=== PATIENT | male | born 1980 | race Caucasian/White ===

== ENCOUNTER 2024-09-20 15:09 | Emergency (ER) | payer MEDICAID ==
[~2024-09-20] VITALS: Ht 188 cm; Wt 125.0 kg
[~2024-09-20 15:09] MED LIST: IBUP-1051 PO; IBUP-1984 PO; [UNRECOGNIZED DRUG - REMARK]
[2024-09-20 15:38] VITALS: BP 159/100; PULSE 94; RESP 18; O2SAT 99
[2024-09-20 16:58] LABS: ALANINE AMINOTRANSFERASE 35 U/L (12-78); ALBUMIN 3.5 G/DL (3.4-5.0); ALBUMIN/GLOBULIN RATIO 0.9 (1.1-1.5); ALKALINE PHOSPHATASE 61 IU/L (46-116); ANION GAP 10 (8-16); ASPARTATE AMINO TRANSFERASE 42 U/L (10-37); BILIRUBIN,TOTAL 0.8 MG/DL (0.1-1.0); BLOOD UREA NITROGEN 15 MG/DL (7-18); BUN/CREATININE RATIO 13.4 (10.0-20.0); CALCIUM 8.2 MG/DL (8.5-10.1); CHLORIDE 102 MMOL/L (99-107); CREATININE 1.12 MG/DL (0.60-1.10); GLUCOSE 96 MG/DL (70-104); POTASSIUM 3.2 MMOL/L (3.5-5.1); SODIUM 140 MMOL/L (135-145); TOTAL CARBON DIOXIDE 27.6 MMOL/L (24-32); TOTAL PROTEIN 7.2 G/DL (6.4-8.2); eCRCL 100 ML/MIN; eGFR 72 ML/MIN
[2024-09-20 17:02] LABS: BASOPHILS % (AUTO) 0.2 % (0-1); EOSINOPHILS % (AUTO) 0.2 % (0-6); HEMATOCRIT 45.4 % (42.0-52.0); HEMOGLOBIN 15.3 g/dl (14.0-17.9); LYMPHOCYTES # (AUTO) 1.7 X10'3 (1.1-4.8); LYMPHOCYTES % (AUTO) 32.7 % (21-51); MEAN CORPUSCULAR HEMOGLOBIN 28.9 PG (27.0-31.0); MEAN CORPUSCULAR HGB CONC 33.6 g/dL (33.0-36.5); MEAN CORPUSCULAR VOLUME 86.1 FL (78-98); MONOCYTES # (AUTO) 0.6 X10'3 (0-0.9); MONOCYTES % (AUTO) 12.4 % (2-12); NEUTROPHILS # (AUTO) 2.7 X10'3 (1.8-7.7); NEUTROPHILS % (AUTO) 54.5 % (42-75); PLATELET COUNT 184 X10'3 (140-440); RED BLOOD COUNT 5.28 X10'6 (4.70-6.10); WHITE BLOOD COUNT 5.1 X10'3 (4.5-11.0)
[2024-09-20] MEDS ORDERED: AMOX-580 PO (17:29)
[2024-09-20] MEDS ORDERED: DOXY-462 PO (17:29)
[2024-09-20] MEDS ORDERED: BENZ-38 PO (17:29)
[2024-09-20] MEDS: amox tr/potassium clavulanate 875/125mg TAB PO ONE (17:42)
[2024-09-20] MEDS: benzonatate 100mg capsule PO ONE (17:42)
[2024-09-20] MEDS: DOXYCYCLINE 100MG CAPSULE PO STA (17:43)
[2024-09-20] MEDS ORDERED: POTASSIUM BICARB 20meq eff tab 20 MEQ TABLET.EFF PO SCH (17:45)
[2024-09-20] MEDS: POTASSIUM BICARB 20meq eff tab 20 MEQ TABLET.EFF PO ONE (18:15)
[2024-09-20 18:24] VITALS: TEMP 98.9
== END 2024-09-20 18:25 | disposition home or self-care (01) ==
LOC: ER 15:10
DX: J18.9 Pneumonia, unspecified organism (principal); E87.6 Hypokalemia; I10 Essential (primary) hypertension; J45.909 Unspecified asthma, uncomplicated; Z88.0 Allergy status to penicillin; Z91.013 Allergy to seafood; Z91.041 Radiographic dye allergy status
CPT/HCPCS: 36415; 71045; 80053; 85025; 99284

== ENCOUNTER 2025-07-12 18:55 | Emergency (ER) | payer OTHER, BC ==
[~2025-07-12] VITALS: Ht 188 cm; Wt 125.1 kg
[2025-07-12 18:57] VITALS: BP 115/97; PULSE 76; RESP 16; TEMP 97.9; O2SAT 100
--- NOTE | 2025-07-12 19:09 | ELECTROCARDIOGRAPH REPORT ---
[facility] Test Date: 2025-07-12 Test Time: 19:03:26 Pat Name: BRANDON PAINTER Department: EMERGENCY ROOM Room: Gender: M Chief Steward/Stewardess: : 1980 Requested By: LON REAL Order Number: [id number] Reading MD: Measurements Intervals [place] Rate: 77 P: 0 ME: 0 QRS: -32 QRSD: 103 T: 28 QT: 406 QTc: 460 Interpretive Statements Atrial fibrillation Low voltage, precordial leads Abnormal R-wave progression, early transition Left ventricular hypertrophy Anterior Q waves, possibly due to LVH Please click the below link to view image of tracing.
[2025-07-12 19:24] LABS: MEAN PLATELET VOLUME 8.6 FL (7.4-10.4); RED CELL DISTRIBUTION WIDTH 13.4 % (11.5-14.5)
--- NOTE | 2025-07-12 19:34 | RADIOLOGY REPORT ---
CLINICAL HISTORY: CP TECHNIQUE: Single view of the chest was obtained. COMPARISON: DI CHEST,SINGLE VIEW on DOS: 09/20/24 FINDINGS: The heart size and pulmonary vasculature are normal. The lungs are clear. IMPRESSION: NO ACUTE CARDIOPULMONARY PROCESS.
[2025-07-12 19:44] LABS: CREATININE 1.54 MG/DL (0.60-1.10); PRO BRAIN NATRIURETIC PEPTIDE 133 PG/ML (0-125); TOTAL CARBON DIOXIDE 32.8 MMOL/L (24-32); eCRCL 72 ML/MIN; eGFR 50 ML/MIN
--- NOTE | 2025-07-12 21:10 | Physician Documentation ---
History of Present Illness ~ General Chief Complaint: Multiple Medical Complaints Stated Complaint: FACE NUMBNESS/SOB Time Seen by MD: 20:43 Primary Medical Doctor: CT History of Present Illness Initial Comments 911. 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 That he has a history of hypertension. Denies any headaches. Denies any shortness of breath but states that his breaths are heavy fair. Denies any chest pain nausea vomiting Medication Reconciliation Allergies: Coded Allergies: Penicillins (Verified Allergy, Unknown, 09/20/24) Shellfish (Verified Allergy, Unknown, 09/20/24) iodine (Verified Allergy, Unknown, 09/20/24) Scheduled Ibuprofen* (Motrin*), 200 MG PO BID, (Reported) Ibuprofen* (Motrin*), 800 MG PO TID Miscellaneous Medications [Unk Bp Meds X 3], (Reported) Past Medical History Past Medical History: Hypertension, Asthma Past Surgical History: no surgical history Alcohol Use: None Drug Use: none Lives with: Family Lives In: Home Occupation: employed Review of Systems All Other Systems at this time: Reviewed and Negative ROS As stated above in the HPI, otherwise all systems are reviewed and negative. Physical Exam Physical Exam Vital Signs: Temperature: 97.9, Source: Oral, Heart Rate: 76, Respiratory Rate: 16, BP: 115/97, Pulse Oximetry: 100, Weight: 125.100 Oxygen Flow Rate: 0 Physical Exam General: Alert, no apparent distress. HEENT: PERRL, EOMI, no injection, moist mucous membranes. Neck: Full range of motion. Respiratory: Lungs clear, no respiratory distress. Chest: No accessory muscle use. Cardiovascular: Regular rate and rhythm, no murmurs. Gastrointestinal: Soft, nontender, nondistended. Bowels sounds present. Extremities: Normal range of motion, no deformity. Neurologic: Oriented x4. Psychiatric: Normal mood and affect. Skin: Normal color, warm and dry. No edema, no ecchymosis. Progress Results/Orders Results/Orders Vital Signs 07/12/25 18:57 Temp 97.9 Pulse 76 Resp 16 B/P (MAP) 115/97 Pulse Ox 100 O2 Flow Rate 0 Laboratory Tests Test 07/12/25 19:15 White Blood Count 6.5 Red Blood Count 5.03 Hemoglobin 15.2 Hematocrit 43.6 Mean Corpuscular Volume 86.7 Mean Corpuscular Hemoglobin 30.2 Mean Corpuscular Hemoglobin Concent 34.9 Red Cell Distribution Width 13.4 Platelet Count 229 Mean Platelet Volume 8.6 Neutrophils (%) (Auto) 49.3 Lymphocytes (%) (Auto) 40.2 Monocytes (%) (Auto) 8.5 Eosinophils (%) (Auto) 1.5 Basophils (%) (Auto) 0.5 Neutrophils # (Auto) 3.2 Lymphocytes # (Auto) 2.6 Monocytes # (Auto) 0.5 Eosinophils # (Auto) 0.1 Basophils # (Auto) 0.0 CBC Comment Sodium Level 142 Potassium Level 3.7 Chloride Level 102 Carbon Dioxide Level 32.8 H Anion Gap 7 L Blood Urea Nitrogen 26 H Creatinine 1.54 H Estimated GFR/1.73 m2 50 BUN/Creatinine Ratio 16.9 Glucose Level 102 Calcium Level 8.9 Troponin I High Sensitivity 5 Pro-B-Type Natriuretic Peptide 133 H Albumin 4.3 Chemistry Comments Medical Decision Making Findings Patient's laboratory values were unremarkable as well as his x-ray and EKG. I do not see any reason to pursue any further evaluation as this patient is hemod ynamically stable and currently asymptomatic. Advised him to follow up with the primary care for further evaluation of his symptoms% Departure Disposition: 01 HOME / SELF CARE / HOMELESS Impression: Primary Impression: Tingling in extremities Condition: Stable Discharge Instructions: Hypertension, Adult, [id number] Referrals: NO PRIMARY CARE PROVIDER (PCP) Education Educated: Patient Educated regarding: diagnosis Signature Scribe Signature: h Attestation: Scribed for Marli Warner Public Relations Intern by Marli Jacobsen NP . 07/12/25 21:08 MARLI WARNER NP Jul 12, 2025 21:10
== END 2025-07-12 21:30 | disposition home or self-care (01) ==
LOC: ER 18:56
DX: R20.2 Paresthesia of skin (principal); I10 Essential (primary) hypertension; I48.91 Unspecified atrial fibrillation; J45.909 Unspecified asthma, uncomplicated; Z88.0 Allergy status to penicillin; Z91.013 Allergy to seafood; Z88.8 Allergy status to other drugs, medicaments and biological substances; Z79.899 Other long term (current) drug therapy
CPT/HCPCS: 36415; 71045; 80048; 83880; 84484; 85025; 93005; 99285